=== PATIENT | female | born 1975 | race Caucasian/White ===

== ENCOUNTER 2017-08-15 11:56 | Observation (INO) | payer OTHER ==
[2017-08-15] MEDS ORDERED: Acetaminophen 325 MG TAB PO PRN (14:12)
[2017-08-15] MEDS ORDERED: hydrALAZINE 20 MG/ML VIAL SLOW IVP PRN (14:12)
[2017-08-15] MEDS ORDERED: Acetaminophen 650 MG Suppository PR PRN (14:12)
[2017-08-15] MEDS ORDERED: Enalaprilat Dihydrate 1.25 MG/ML VIAL SLOW IVP PRN (14:12)
[2017-08-15] MEDS ORDERED: Nicotine 21 MG PATCH TD PRN (14:12)
[2017-08-15] MEDS ORDERED: Bisacodyl 5 MG TAB PO PRN (14:12)
[2017-08-15] MEDS ORDERED: Aggrenox 200-25mg CAP PO SCH (15:00)
--- NOTE | 2017-08-15 16:55 | HP ---
PRIMARY CARE PROVIDER: Sloane Palmer, [place], [place]. CHIEF COMPLAINT: Numbness. HISTORY OF PRESENT ILLNESS: Ms. Chakraborty is a pleasant 42-year-old lady who was seen at [facility] on 08/15/2017. She has a history of migraines. She reports having frequent migraines, which she treats with Fiorina l with codeine. Today, she reports having a headache that was not like her usual migraine headache. She reports that it was worse with movements of her head. She went to work. Around 9:00 a.m., she developed left upper extremity heaviness and numbness over the left side of the face. She denies any diplopia. She denies any difficulty swallowing. She denies any weakness other than the left upper extremity heaviness. She denies any nausea or vomiting. She denies any chest pain or shortness of b reath. She was seen in the emergency room at [facility]. She was subsequently transferred here. She reports that her neurologic symptoms lasted about an hour and spontaneously resolved. She report s that the headache that she had today actually started a couple of days ago and as mentioned earlier , it is different from her migraine headache. REVIEW OF SYSTEMS: All other systems reviewed and found to be negative. PAST MEDICAL HISTORY: Migraine headaches, malignant uterine mass. PAST SURGICAL HISTORY: Hysterectomy for malignant uterine mass when patient was 19 years old. PSYCHIATRIC HISTORY: Anxiety. FAMILY HISTORY: Significant for coronary artery disease in her father. SOCIAL HISTORY: No alcohol use or recreational drug use. She smokes 1 pack of cigarettes a day. ALLERGIES: No known drug allergies. CURRENT MEDICATIONS: Fiorinal/codeine #3 30/50/325/40 mg 1 tablet every 6 hours as needed. PHYSICAL EXAMINATION: GENERAL: On examination, Ms. Chakraborty is awake and alert, not in acute distress. VITAL SIGNS: Blood pressure is 111/60, pulse is 64, she is breathing at rate of 16, and saturating 9 8% on room air. She is afebrile. EYES: No scleral icterus. No conjunctival pallor. ENT: Moist mucosal membranes, no oropharyngeal erythema or exudates. NECK: Supple, nontender, normal range of movement. Trachea is midline. RESPIRATORY: Accessory muscles of breathing are not active. Chest wall movements are symmetric bila terally. LUNGS: Clear to auscultation without wheeze, rhonchi or crepitations. CARDIOVASCULAR: S1 and S2 are heard, regular. Peripheral pulses palpable. No carotid bruit, no per icardial rub. ABDOMEN: Soft, nontender, bowel sounds are heard, no hepatomegaly, no splenomegaly. NEUROLOGIC: Cranial nerves II-XII intact. No focal motor or sensory deficits. Power is 5/5 in all 4 extremities. Deep tendon reflexes are 2+. Plantar reflexes are downgoing bilaterally. Cerebellar exam is unremarkable. MUSCULOSKELETAL: Power is 5/5 in all 4 extremities. SKIN: No rashes or subcutaneous nodules. LYMPHATIC: No cervical lymphadenopathy. PSYCHIATRIC: Normal mood, normal affect, patient is oriented to person, place, and time. IMAGING DATA AND LABORATORY DATA: Ms. Chakraborty's labs and investigations were reviewed. I reviewed her electrocardiogram, which shows normal sinus rhythm. I also reviewed her noncontrast CT scan of the b rain, which does not show any acute intracranial abnormalities. She has a normal CBC, INR 0.9, decre ased potassium of 3.3, otherwise normal comprehensive metabolic profile, normal troponin I and urinal ysis positive for small amount of blood and squamous epithelial cells. ASSESSMENT AND PLAN: Ms. Chakraborty is a pleasant 42-year-old lady who was seen at [facility] on 08/15/2017. Her problem list includes: 1. Transient ischemic attack: Ms. Chakraborty is presenting with transient ischemic attack. Her neurologi c symptoms lasted approximately an hour. We will admit her to the hospital for further workup, inclu ding MRI of the brain, 2D echocardiogram and carotid Dopplers. I will continue her on aspirin and st art her on statin. We will consult Neurology Service for opinion and help with management. 2. Hypokalemia: Replace potassium, recheck potassium level. 3. Migraines: Patient has a history of migraines. She, however, denies having a migraine headache today. We will continue her home medications. 4. Tobacco abuse: Patient has been counseled regarding tobacco cessation. We will continue her on p.r.n. nicotine replacement therapy. Patient reports that she was supposed to be taking hormonal supplements but she has not been taking t hem because she read the side effects and is worried about the side effects, since she continues to s moke. Many thanks for allowing me to participate in your patient's care. Please feel free to contact me wi th any questions or concerns. LEVEL OF RISK: High. LEVEL OF COMPLEXITY: High.
[2017-08-15 17:26] VITALS: BMI 23.5
[2017-08-15] MEDS ORDERED: Atorvastatin Calcium 10 MG TAB PO SCH (21:00)
[2017-08-15] MEDS ORDERED: Fiorinal 325/50/40 mg Tablet PO PRN (21:25)
--- NOTE | 2017-08-15 23:04 | ULT ---
BILATERAL CAROTID DUPLEX ULTRASOUND: 08/15/17 HISTORY: Left hand and face weakness. TECHNIQUE: Guerrero scale, color flow, and spectral doppler imaging of the extracranial carotid artery systems is pe rformed bilaterally. FINDINGS: No significant intimal wall thickening or plaque formation is seen on either side. The peak systolic velocity in the right ICA measures 96 cm/s with an end diastolic velocity of 33 cm/s and a systolic r atio of 0.70. The peak systolic velocity in the left ICA measures 82 cm/s with an end diastolic velocity of 29 cm/s and systolic ratio of 0.76. Flow in both vertebral arteries remains antegrade. IMPRESSION: No evidence of hemodynamically significant stenosis. POS: [facility]
--- NOTE | 2017-08-16 05:52 | CON ---
DATE OF CONSULTATION: 08/15/2017 REFERRING PROVIDER: Ulises Lee M.D. REASON FOR CONSULTATION: TIA. HISTORY OF PRESENT ILLNESS: Ms. Chakraborty is a pleasant 42-year-old female who has been consult ed for evaluation of TIA. The patient was undergoing Doppler studies during my evaluation. The nanette ent reports that she has history of migraine for several years. She currently takes Fiorinal 1 table t twice a day as needed for breakthrough headache. She states that she has migraine type headache at least once or twice a week, they tend to last 2-3 days, and her headaches are usually in the frontal orbital region. They are throbbing and sharp in quality, severe in intensity and has nausea, vomiti ng with the headache. She states that she started having headache on Thursday evening, Thursday night which woke her up from sleep. The pain was more intense and she had to wake her up to put a cold rag on for forehead. She noted when she was pressing with his hand the headaches were better; h owever, when he would remove his hand from top of her forehead she will get more pain coming on. She continued to have headaches until yesterday. She states that this morning, she woke up and started noticing heaviness in her left upper extremity as her symptoms were not improving had gone to [facility] in [facility]. She states that heaviness in the left arm started around 9:30 a.m. and by 10:30 a.m., her symptoms were resolved. She says in the past with her migraines, she has nev er had similar episode. She currently denies any headache, chest pain, palpitation, numbness, tingli ng, weakness, difficulty with balance. PAST MEDICAL HISTORY: Significant for intractable migraines. PAST SURGICAL HISTORY: Significant for hysterectomy. FAMILY HISTORY: Significant for coronary artery disease. SOCIAL HISTORY: She denies alcohol use or illicit drug use. She does smoke 1 pack of cigarettes on a daily basis. CURRENT MEDICATIONS: Please review MAR. ALLERGIES: No known drug allergies. REVIEW OF SYSTEMS: As mentioned above in the HPI, otherwise negative. PHYSICAL EXAMINATION: VITAL SIGNS: Blood pressure of 113/59, pulse of 77, temperature of 97.9, respirations of 18, O2 sats of 98% on room air. GENERAL: Well-developed, well-nourished female in no apparent distress. Physical exam was could not be done. The patient was undergoing carotid Dopplers. NEUROLOGIC: She was talking appropriately and her comprehension and speech were normal. She was mov ing both upper and lower extremities on her own. I did not witness any nuchal rigidity when patient was undergoing carotid Dopplers. LABORATORY DATA: Reviewed, which included CBC, CMP, which is significant for potassium of 3.3, other islas unremarkable. IMAGING STUDIES: CT head without contrast was reviewed, which showed no acute intracranial abnormali ty. IMPRESSION: Complicated migraine. Ms. Chakraborty is a pleasant 42-year-old female who presented with the 3-4 day history of severe headache. She had an episode of left arm heaviness that is now resolved. Based on the description o f her symptoms, this is likely complicated migraine. I will recommend obtaining MRI brain without co ntrast in the morning. If that is unremarkable, the patient is okay to be discharged home. I had a very long discussion with the patient and explained that given she has a very frequent migraines that were chronic, she would benefit from having a preventive therapy for migraines. I also explained th at she may be undergoing analgesic rebound headaches that she is taking 2 Fiorinal on a daily basis a nd on the day of the migraine, she takes every 4 hours, which can potentiate the rebound headaches to come on. I have advised her that she needs to decrease her amount of intake for Fiorinal. I have a lso discussed about different preventive therapies including Botox and explained that she may need to discuss with her primary care physician to see and refer to a neurologist who can perform Botox inje ctions for migraine therapy. The patient did voice understanding in this matter. At this time, I wo uld recommend continuing current medical management. Thank you for the consultation.
[2017-08-16 06:19] LABS: #Basophils 0.1 thou/uL (0.0-0.2); #Eosinphils 0.1 thou/uL (0.0-0.7); #Lymphocytes 2.1 thou/uL (1.20-3.40); #Monocytes 0.5 thou/uL (0.11-0.59); #Neutrophils 3.5 thou/uL (1.40-6.50); %Eosinophils 1.4 % (0.0-10.0); %Lymphocytes 34.2 % (21.0-51.0); %Monocytes 7.7 % (0.0-10.0); %Neutrophils 55.8 % (42.0-75.0); Mean Corpuscular HGB CONC 34.1 g/dL (32.0-36.0); Mean Corpuscular Hemoglobin 29.8 pg (27.0-31.0); Mean Corpuscular Volume 87.5 fL (78.0-98.0); Mean Platelet Volume 8.9 fL (7.4-10.4); Platelet Count 164 thou/uL (130-400); Red Blood Cell (RBC) Count 4.68 mill/uL (4.20-5.40); White Blood Cell (WBC) Count 6.3 thou/uL (4.8-10.8)
[2017-08-16 06:45] LABS: Anion Gap 10 mmol/L (10-20); BUN (Urea Nitrogen) 15 mg/dL (7.0-18.7); Calc. Creatinine Clearance 106 mL/min (70-130); Carbon Dioxide 27 mmol/L (22-29); Cardiac Risk 5.4 (Less than 4.5); Chloride 106 mmol/L (98-107); Cholesterol 182 mg/dl (< 200 Desired); Estimated GFR-MDRD 87; Glucose 103 mg/dL (70-105); HDL Cholesterol 34 mg/dL (>60 Neg Risk); LDL Cholesterol, Calculated 126 mg/dL; Potassium 3.9 mmol/L (3.5-5.1); Sodium 139 mmol/L (136-145); Triglycerides 110 mg/dL (Less than 150)
[2017-08-16] MEDS ORDERED: Aspirin 325 mg Enteric Coated Tablet PO SCH (09:00)
[2017-08-16] MEDS ORDERED: Enoxaparin Sodium 40 MG/0.4 ML SYRINGE SC SCH (09:00)
--- NOTE | 2017-08-16 10:11 | MRI ---
NONCOTNRAST MRI OF BRAIN: DATE: 08/16/17. HISTORY: Left arm feels heavy, left side of face feels funny. TIA. No known trauma/injury. FINDINGS: No significant abnormalities are seen throughout the brain. There is no evidence of an acute infarct ion. The septum pellucidum and third ventricle are in the midline. The ventricular system is normal in size, shape, and position. Appropriate flow voids demonstrated at the base of the brain. There is mild mucosal thickening seen in a few ethmoidal air cells as well as the right frontal sinus. The orbits and remainder of the skull base have a normal MRI appearance. IMPRESSION: No acute intracranial abnormality is demonstrated. POS: [facility]
[2017-08-16 13:27] VITALS: BP 127/79; TEMP 99.1
--- NOTE | 2017-08-16 21:00 | DIS ---
DATE OF DISCHARGE: 08/16/2017 DISCHARGE DISPOSITION: Home. FOLLOWUP: Follow up with primary care physician, Dr. Palmer, in [place] in 1 week. Follow up wit h Dr. Nichelle Lomeli in 1-2 weeks. ALLERGIES: No known drug allergies. The patient was seen on the day of discharge. Denies any new complaints. No chest pain, shortness o f breath, palpitations. DISCHARGE MEDICATIONS: Same as admission medication. The patient takes Fiorinal as needed. BRIEF HOSPITAL COURSE: The patient is a 42-year-old female with migraines, presented to the emergenc y room with some headache as well as left upper extremity heaviness and numbness. She also had some left facial numbness as well. Please refer to the history and physical dated 08/15/2017 for further details. The patient was admitted to the stroke unit with a diagnosis of TIA. She was seen by Neurology, Dr. Nichelle Lomeli. Carotid Doppler was negative. MRI of the brain was negative. According to Dr. Lomeli, th e patient has complicated migraines. She was also explained that she may be undergoing analgesic hussain ound headaches since she is taking more than usual Fiorinal tablets on the daily basis. She was advi sed to follow up with Dr. Lomeli as outpatient for preventive therapies for migraine. She has been samara ared by Neurology for discharge. Plan of care was discussed with the patient in detail. She stated understanding. FINAL DIAGNOSES: 1. Complicated migraine. 2. Hypokalemia in the emergency room, resolved. 3. Tobacco dependence. The patient was counseled. 4. Anxiety.
== END 2017-08-16 13:25 | disposition home or self-care (01) ==
LOC: ERS 11:56 → 2SE 17:12
PROVIDERS: ADMIT Internal Medicine; ATTEND Internal Medicine
DX: G43.109 Migraine with aura, not intractable, without status migrainosus (principal); E87.6 Hypokalemia; F41.9 Anxiety disorder, unspecified; F17.210 Nicotine dependence, cigarettes, uncomplicated
CPT/HCPCS: 36415; 70551; 80048; 80061; 85025; 93880; 99406; A4216; G0378; J1650